=== PATIENT | female | born 1940 | race Caucasian/White ===

== ENCOUNTER → 2016-05-18 | Outpatient (CLI) | payer MEDICARE, BC | LOC: MC.RAD 11:29 | DX: Z12.31 Encounter for screening mammogram for malignant neoplasm of breast (principal); Z80.3 Family history of malignant neoplasm of breast ==

== ENCOUNTER → 2017-05-19 | Outpatient (CLI) | payer MEDICARE, BC | LOC: MC.RAD 13:16 | DX: Z12.31 Encounter for screening mammogram for malignant neoplasm of breast (principal) ==

== ENCOUNTER → 2018-04-03 | Outpatient (CLI) | payer MEDICARE, BC | LOC: COL.RAD 09:45 | DX: N30.20 Other chronic cystitis without hematuria (principal); N32.89 Other specified disorders of bladder ==

== ENCOUNTER → 2018-06-13 | Outpatient (CLI) | payer MEDICARE, BC | LOC: MC.RAD 12:58 | DX: Z12.31 Encounter for screening mammogram for malignant neoplasm of breast (principal) ==

== ENCOUNTER 2018-08-11 21:30 | Emergency (ER) | payer MEDICARE, BC ==
[~2018-08-11] VITALS: Ht 162.6 cm; Wt 75.0 kg
[2018-08-11 21:34] VITALS: TEMP 98.9
[2018-08-11] MEDS ORDERED: SYNTHROID0.075 MG/T PO (22:16)
[2018-08-11] MEDS ORDERED: PRINIVIL40 MG PO (22:16)
[2018-08-11] MEDS ORDERED: CRANBERRY500 M3 PO (22:17)
[2018-08-11] MEDS ORDERED: HCTZ 25MG TAB25 MG PO (22:17)
[2018-08-11] MEDS ORDERED: CELEXA 20MG20 MG/TAB PO (22:17)
[2018-08-11] MEDS ORDERED: ASPIRIN 81M81 MG/TA2 PO (22:18)
[2018-08-11] MEDS ORDERED: VITAMIN D31000 I1 PO (22:18)
[2018-08-11] MEDS ORDERED: CALCIUM CARBON650 M2 (22:18)
[2018-08-11] MEDS ORDERED: CULTURELLE CAP1 EAC1 PO (22:19)
[2018-08-11] MEDS ORDERED: NATURE'S BLE1000 MCG (22:19)
[2018-08-11 22:20] LABS: BASO # 0.1 (0.0-0.2); EOS # 0.1 (0.0-0.7); EOS % 0.7 % (0-4.0); GRAN # 6.2 (1.4-6.5); GRAN % 71.2 % (42.2-75.2); HEMOGLOBIN 11.9 g/dl (12.5-16.0); LYMPH # 1.6 (1.2-3.4); LYMPH % 18.1 % (20.0-51.0); MEAN CELL VOLUME 93 fl (80.0-100.0); MEAN CORPUSCULAR HEMOGLOBIN 32 pg (27.0-31.0); MEAN CORPUSCULAR HGB CONC 34 g/dl (33.0-37.0); MEAN PLATELET VOLUME 8.4 fl (7.4-10.4); MONO # 0.8 (0.1-0.6); MONO % 8.8 % (1.7-9.3); PLATELET COUNT 243 K/mm3 (130-400); RED BLOOD COUNT 3.78 M/mm3 (4.10-5.30)
[2018-08-11] MEDS ORDERED: PROLIA60 MG/ML SQ (22:20)
[2018-08-11 22:21] LABS: HEMATOCRIT 35.2 % (37.0-47.0)
[2018-08-11 22:25] LABS: PROTHROMBIN TIME 10.8 SECONDS (9.7-12.8)
[2018-08-11 22:27] LABS: PARTIAL THROMBOPLASTIN TIME 28.5 SECONDS (26.0-37.0)
[2018-08-11 22:32] LABS: ALANINE AMINOTRANSFERASE 18 U/L (9-52); ALBUMIN 3.9 gm/dL (3.5-5.0); ALKALINE PHOSPHATASE 71 U/L (50-136); ANION GAP 10 mmol/L (7-16); AST,SGOT 29 U/L (15-37); BILIRUBIN,TOTAL 0.3 mg/dL (0.0-1.0); BLOOD UREA NITROGEN 18 mg/dL (7-17); CALCIUM 8.7 mg/dL (8.4-10.2); CARBON DIOXIDE 24 mmol/L (22-30); CHLORIDE 95 mmol/L (98-107); CREATININE, serum 0.86 (0.52-1.25); GLUCOSE 129 mg/dL (74-106); SODIUM 129 mmol/L (137-145); TOTAL PROTEIN 6.5 gm/dL (6.4-8.2)
[2018-08-11 22:44] LABS: TROPONIN-I < 0.012 ng/mL (0.000-0.035)
[2018-08-11 23:24] VITALS: BP 141/68; PULSE 70
== END 2018-08-11 23:24 | disposition home or self-care (01) ==
LOC: COL.ER 21:30
PROVIDERS: Family Medicine
DX: R55 Syncope and collapse (principal); E87.1 Hypo-osmolality and hyponatremia; I45.6 Pre-excitation syndrome; Z98.890 Other specified postprocedural states

== ENCOUNTER → 2019-08-23 | Outpatient (CLI) | payer MEDICARE, BC ==
[~2019-08-23] MED LIST: ASPIRIN 81M81 MG/TA2 PO; CALCIUM CARBON650 M2; CELEXA 20MG20 MG/TAB PO; CRANBERRY500 M3 PO; CULTURELLE CAP1 EAC1 PO; HCTZ 25MG TAB25 MG PO; NATURE'S BLE1000 MCG; PRINIVIL40 MG PO; PROLIA60 MG/ML SQ; SYNTHROID0.075 MG/T PO; VITAMIN D31000 I1 PO
== END ==
LOC: MC.RAD 13:19
DX: Z12.31 Encounter for screening mammogram for malignant neoplasm of breast (principal)

== ENCOUNTER → 2021-08-25 | Outpatient (CLI) | payer MEDICARE, BC | LOC: MHCPAIN 12:59 | DX: M54.16 Radiculopathy, lumbar region (principal); M41.80 Other forms of scoliosis, site unspecified; M47.896 Other spondylosis, lumbar region; M53.3 Sacrococcygeal disorders, not elsewhere classified; M70.62 Trochanteric bursitis, left hip | CPT/HCPCS: G0463 ==

== ENCOUNTER → 2021-08-27 | Outpatient (CLI) | payer MEDICARE, BC | LOC: MHCPAIN 10:40 | DX: M47.817 Spondylosis without myelopathy or radiculopathy, lumbosacral region (principal); M54.16 Radiculopathy, lumbar region; M41.26 Other idiopathic scoliosis, lumbar region | CPT/HCPCS: J1100; Q9967 ==

== ENCOUNTER → 2021-10-27 | Outpatient (CLI) | payer MEDICARE, BC | LOC: MHCPAIN 13:10 | DX: M54.16 Radiculopathy, lumbar region (principal); M47.896 Other spondylosis, lumbar region; M41.86 Other forms of scoliosis, lumbar region | CPT/HCPCS: G0463 ==

== ENCOUNTER 2023-01-25 11:22 | Outpatient (CLI) | payer MEDICARE, BC ==
[~2023-01-25] VITALS: Ht 162.6 cm; Wt 74.7 kg
[~2023-01-25 11:22] MED LIST changes: +CALCIUM 600MG+D1 TAB PO; -CALCIUM CARBON650 M2; -NATURE'S BLE1000 MCG; +NATURE'S BLE1000 MCG PO
[2023-01-25 11:51] VITALS: BP 123/73; PULSE 70; TEMP 98.6
[2023-01-25] MEDS ORDERED: ZEBETA 5MG5 MG PO (12:10)
[2023-01-25] MEDS ORDERED: COZAAR100 MG PO (12:10)
[2023-01-25] MEDS ORDERED: PAMELOR 10MG10 MG PO (12:11)
[2023-01-25] MEDS ORDERED: ALDACTONE 25MG25 M1 PO (12:11)
[2023-01-25] MEDS ORDERED: SINGULAIR 110 MG/TAB PO (12:12)
[2023-01-25] MEDS ORDERED: THEO-24 20200 MG/CAP PO (12:12)
[2023-01-25] MEDS ORDERED: MULTIPLE VITAMI1 CAP PO (12:16)
[2023-01-25] MEDS ORDERED: PROLIA60 MG/ML SQ (12:17)
== END 2023-01-25 12:18 ==
LOC: EUO 11:22
DX: M81.0 Age-related osteoporosis without current pathological fracture (principal)
CPT/HCPCS: J0897

== ENCOUNTER 2023-07-28 10:55 | Outpatient (CLI) | payer MEDICARE, BC ==
[~2023-07-28] VITALS: Ht 162.6 cm; Wt 72.0 kg
[~2023-07-28 10:55] MED LIST changes: +ALDACTONE 25MG25 M1 PO; +ALIGN PO; +BACTRIM DS 8001 TAB PO; +CEPHALEXIN500 M1 PO; +COZAAR100 MG PO; -CRANBERRY500 M3 PO; -CULTURELLE CAP1 EAC1 PO; +MULTIPLE VITAMI1 CAP PO; +PAMELOR 10MG10 MG PO; +SINGULAIR 110 MG/TAB PO; +THEO-24 20200 MG/CAP PO; +THERACRAN650 MG PO; +ZEBETA 5MG5 MG PO
[2023-07-28 11:15] VITALS: BP 110/66; PULSE 68; TEMP 98.2
[2023-07-28] MEDS ORDERED: Denosumab 60 MG/ML SYRINGE SQ ONE (11:15)
[2023-07-28] MEDS ORDERED: PLAVIX 75MG TAB75 MG PO (11:18)
[2023-07-28] MEDS ORDERED: CREON 36000 PO (11:19)
[2023-07-28] MEDS ORDERED: OMNICEF 300MG300 MG PO (11:20)
--- NOTE | 2023-07-28 11:42 | NUR ---
Pt tolerated prolia without issue. She exits dept with steady gait. Free of complaints at time of discharge.
== END 2023-07-28 11:43 | disposition home or self-care (01) ==
LOC: EUO 10:55
DX: M81.0 Age-related osteoporosis without current pathological fracture (principal)
CPT/HCPCS: J0897